=== PATIENT | male | born 1955 | race Caucasian/White ===

== ENCOUNTER 2023-09-06 11:55 | Emergency (ER) | payer BC ==
[~2023-09-06] VITALS: Ht 182.9 cm; Wt 98.0 kg
[2023-09-06 12:59] VITALS: TEMP 98.3
[2023-09-06] MEDS: HYDROcodone/acetaminophen 5mg/325mg tablet PO ONE (13:55)
[2023-09-06 14:46] LABS: BILIRUBIN,URINE NEGATIVE (Neg); CLARITY,URINE CLEAR (Clear); COLOR,URINE YELLOW (Yellow); GLUCOSE, URINE NEGATIVE (Neg); KETONES,URINE NEGATIVE (Neg); LEUKOCYTE ESTERASE ,URINE NEGATIVE (Neg); NITRITES, URINE NEGATIVE (Neg); OCCULT BLOOD,URINE NEGATIVE (Neg); PROTEIN,URINE NEGATIVE (Neg); UROBILINOGEN,URINE 0.2 E.U/dL (0.2-1.0)
[2023-09-06] MEDS: ketorolac trometh. 30mg/ml inj. IM ONE (14:52)
[2023-09-06] MEDS: ondansetron 4mg rapidly disintigrating tab PO ONE (14:54)
[2023-09-06 14:57] LABS: ALANINE AMINOTRANSFERASE 67 U/L (12-78); ALBUMIN 3.4 G/DL (3.4-5.0); ALBUMIN/GLOBULIN RATIO 0.8 (1.1-1.5); ALKALINE PHOSPHATASE 121 IU/L (46-116); ANION GAP 15 (8-16); ASPARTATE AMINO TRANSFERASE 50 U/L (10-37); BILIRUBIN,TOTAL 1.2 MG/DL (0.1-1.0); BLOOD UREA NITROGEN 24 MG/DL (7-18); BUN/CREATININE RATIO 32.9 (10.0-20.0); CALCIUM 9.4 MG/DL (8.5-10.1); CHLORIDE 103 MMOL/L (99-107); CREATININE 0.73 MG/DL (0.60-1.10); GLUCOSE 96 MG/DL (70-104); LIPASE 32 U/L (16-77); POTASSIUM 4.8 MMOL/L (3.5-5.1); SODIUM 136 MMOL/L (135-145); TOTAL CARBON DIOXIDE 18.2 MMOL/L (24-32); TOTAL PROTEIN 7.9 G/DL (6.4-8.2); eCRCL 111 ML/MIN; eGFR > 90 ML/MIN
[2023-09-06] MEDS: ketorolac tromethamine 15mg/ml inj. IM ONE (14:58)
[2023-09-06 15:08] LABS: UA COLLECTION TYPE CLN CATCH MIDSTREAM
[2023-09-06 15:21] LABS: APTT 25 SECONDS (22-32); INR 1.1 INR; PROTHROMBIN TIME 11.7 SECONDS (9.0-12.0)
[2023-09-06 15:35] VITALS: BP 141/82; PULSE 80; O2SAT 94
[2023-09-06 15:53] VITALS: RESP 18
== END 2023-09-06 16:20 | disposition left against medical advice (07) ==
LOC: ER 11:56
DX: N20.0 Calculus of kidney (principal); Z88.0 Allergy status to penicillin; Z87.442 Personal history of urinary calculi
CPT/HCPCS: 36415; 74176; 80053; 81003; 83690; 85610; 85730; 96372; 99285; J1885